=== PATIENT | female | born 1965 | race Caucasian/White ===

== ENCOUNTER 2019-10-23 09:10 | Day surgery (SDC) | payer OTHER ==
[~2019-10-23] VITALS: Ht 167.6 cm; Wt 102.8 kg
[~2019-10-23 09:10] MED LIST: PROZAC20 MG PO; VALA500 PO
== END 2019-10-23 10:28 | disposition home or self-care (01) ==
LOC: ORSCSDS 09:10
PROVIDERS: Internal Medicine Gastroenterology
PROC: 0DBL8ZX Excision of Transverse Colon, Via Natural or Artificial Opening Endoscopic, Diagnostic (ICD-10-PCS; principal; 2019-10-23 08:30)
DX: K62.5 Hemorrhage of anus and rectum (principal); D12.3 Benign neoplasm of transverse colon; I10 Essential (primary) hypertension; K57.30 Diverticulosis of large intestine without perforation or abscess without bleeding; K64.8 Other hemorrhoids; E66.01 Morbid (severe) obesity due to excess calories; Z68.37 Body mass index [BMI] 37.0-37.9, adult; Z79.899 Other long term (current) drug therapy
CPT/HCPCS: J0330; J0461; J2405; J2704; J7120

== ENCOUNTER → 2020-09-05 | Outpatient (CLI) | payer OTHER ==
[2020-09-11 05:11] LABS: HPV 16 Negative (Negative); HPV 18 Negative (Negative); HPV OTHER HR TYPES Negative (Negative)
[2020-09-12 11:20] LABS: CHLAMYDIA BY NAA Negative (Negative); GONOCOCCUS BY NAA Negative (Negative); TRICH VAG BY NAA Negative (Negative)
== END | disposition home or self-care (01) ==
LOC: LAB 09:49 → LAB SHORT 09:49
PROVIDERS: Family Medicine
DX: Z01.419 Encounter for gynecological examination (general) (routine) without abnormal findings (principal)
CPT/HCPCS: 87491; 87591; 87624; 87661; G0123

== ENCOUNTER → 2021-07-25 | Outpatient (CLI) | payer OTHER ==
[~2021-07-25] MED LIST changes: +MECL25 PO
== END ==
LOC: LAB SHORT 18:07
DX: R82.79 Other abnormal findings on microbiological examination of urine (principal)
CPT/HCPCS: 87086

== ENCOUNTER → 2022-07-29 | Outpatient (CLI) | payer OTHER | END | disposition home or self-care (01) | LOC: LAB SHORT 18:37 | DX: L72.3 Sebaceous cyst (principal) | CPT/HCPCS: 87070; 87075; 87205 ==

== ENCOUNTER 2024-05-25 12:12 | Day surgery (SDC) | payer OTHER ==
[~2024-05-25] VITALS: Ht 167.6 cm; Wt 82.4 kg
[~2024-05-25 12:12] MED LIST changes: +ALLEGRA ALLERG180 MG; +Lactated Ringer's 1,000 ML IV ONE; +METF500; +OMEP20ER; +propofoL 50 ML IV ONE
[2024-05-25] MEDS ORDERED: WEGOVY0.5 MG/0.5 (12:55)
[2024-05-25] MEDS ORDERED: Lactated Ringer's 1,000 ML IV ONE (13:19)
[2024-05-25 14:31] VITALS: BP 116/78
== END 2024-05-25 14:35 | disposition home or self-care (01) ==
LOC: ORSCSDS 12:12
PROVIDERS: Internal Medicine Gastroenterology
PROC: 0DBL8ZX Excision of Transverse Colon, Via Natural or Artificial Opening Endoscopic, Diagnostic (ICD-10-PCS; principal; 2024-05-25 13:45)
PROC: 0DBK8ZX Excision of Ascending Colon, Via Natural or Artificial Opening Endoscopic, Diagnostic (ICD-10-PCS; principal; 2024-05-25 13:45)
DX: Z12.11 Encounter for screening for malignant neoplasm of colon (principal); Z86.0101 Personal history of adenomatous and serrated colon polyps; D12.3 Benign neoplasm of transverse colon; D12.2 Benign neoplasm of ascending colon; K57.30 Diverticulosis of large intestine without perforation or abscess without bleeding; K64.8 Other hemorrhoids; E11.9 Type 2 diabetes mellitus without complications; I10 Essential (primary) hypertension; E78.5 Hyperlipidemia, unspecified; Z79.84 Long term (current) use of oral hypoglycemic drugs; Z79.899 Other long term (current) drug therapy; Z86.73 Personal history of transient ischemic attack (TIA), and cerebral infarction without residual deficits
CPT/HCPCS: 82947; 88305; J2704; J7120

== ENCOUNTER → 2024-09-21 | Outpatient (CLI) | payer OTHER ==
[~2024-09-21] MED LIST changes: -Lactated Ringer's 1,000 ML IV ONE; +WEGOVY0.5 MG/0.5; -propofoL 50 ML IV ONE
[2024-09-28 12:33] LABS: HPV GENOTYPE 16 BY TMA Not Detected; HPV GENOTYPE 18/45 BY TMA Not Detected; HPV HIGH RISK BY TMA Detected; HPV SOURCE Cervical; HPVG SOURCE Cervical
== END | disposition home or self-care (01) ==
LOC: LAB SHORT 10:45 → LAB 10:45
PROVIDERS: Family Medicine
DX: Z01.419 Encounter for gynecological examination (general) (routine) without abnormal findings (principal)
CPT/HCPCS: 87624; 87625; G0123

== ENCOUNTER → 2024-12-11 | Outpatient (CLI) | payer OTHER | LOC: LAB SHORT 08:27 → LAB 08:27 | DX: D06.0 Carcinoma in situ of endocervix (principal); D06.1 Carcinoma in situ of exocervix; R87.810 Cervical high risk human papillomavirus (HPV) DNA test positive | CPT/HCPCS: 88305 ==

== ENCOUNTER 2025-05-28 13:45 | Day surgery (SDC) | payer OTHER ==
[~2025-05-28] VITALS: Ht 167.6 cm; Wt 86.9 kg
[2025-05-28] VITALS (9 sets, daily range): BP systolic 115–157; BP diastolic 64–100
[~2025-05-28 13:45] MED LIST changes: +MOUNJARO7.5 MG/0.5 SC
[2025-05-28] MEDS ORDERED: Bupivacaine 0.5% HCl 5 MG/ML 30MLVIAL ONE (16:05)
--- NOTE | 2025-05-28 16:27 | NUR ---
REPORT GIVEN TO JOSÉ MIGUEL GUALLPA RN.
--- NOTE | 2025-05-28 16:27 | NUR ---
Pre-Op teaching done. Pt verbalizes understanding. Ambulatory in Day Surgery. History, Chart, Medications and Allergies reviewed before start of procedure. Patient States Post-Procedure ride home has been arranged. Patient confirms NPO status and agrees with scheduled surgery.
[2025-05-28] MEDS ORDERED: HYDROmorphone HCl/Pf 1MG SYR IV PRN (16:45)
[2025-05-28] MEDS ORDERED: FentaNYL Citrate 50 MCG/ML 2 ML Injection IV PRN ×2 (16:45)
[2025-05-28] MEDS ORDERED: Albuterol 2.5 MG/3 ML VIAL INH PRN (16:45)
[2025-05-28] MEDS ORDERED: Ondansetron HCl 2 MG / ML 2ML Vial IV PRN (16:50)
[2025-05-28] MEDS ORDERED: Midazolam HCl 1MG / ML 2ML Vial ONE (17:07)
[2025-05-28] MEDS ORDERED: Dexamethasone Sod Phos 10 MG/ML 1ML VIAL ONE (17:08)
[2025-05-28] MEDS ORDERED: FentaNYL Citrate 50 MCG/ML 2 ML Injection ONE (17:08)
[2025-05-28] MEDS ORDERED: Rocuronium Bromide 10 MG/ML 5ML Injection IV ONE ×2 (17:08→17:44)
[2025-05-28] MEDS ORDERED: HYDROmorphone HCl/Pf 1MG SYR ONE (17:43)
[2025-05-28] MEDS ORDERED: Labetalol HCL 5 MG/ML 4ML Injection (Single Dose) ONE (17:55)
[2025-05-28] MEDS ORDERED: Sugammadex Sodium 200 MG/2ML SDV (100 MG/ML) ONE (18:44)
--- NOTE | 2025-05-28 18:50 | NUR ---
05/28/25 1850 Gely Forte WHEN EXAMINING BILATERAL FALLOPIAN TUBES FOR ESSURE COILS, REQUESTED ABDOMINAL X-RAY BE TAKEN INTRAOPERATIVELY TO VERIFY ESSURE COIL REMOVAL. REVIEWED ABDOMNIAL X-RAY AND WAS SATISFIED WITH THE RESULTS, AND PROCEEDED WITH CLOSING THE ABDOMINAL PORT SITES.
[2025-05-28] MEDS ORDERED: Ketorolac Tromethamine 30mg Vial ONE (18:56)
[2025-05-28] MEDS ORDERED: OxyCODONE 5 mg/Acetamin 325 mg TABLET PO PRN (19:15)
--- NOTE | 2025-05-28 19:37 | NUR ---
PATIENT ORIENTED. PATIENT OFFERED WATER AND CRACKERS, TOW. EDUCATED PATIENT ON DISCHARGE INSTRUCTIONS, PATIENT VERBALIZED UNDERSTANDING OF DISCHARGE INSTRUCTIONS. RIDE VERIFIED AND PRESENT. NO PAIN OR NAUSEA REPORTED, PATIENT UNDERSTOOD PAIN MANAGEMENT RESOURCES.
== END 2025-05-28 23:00 | disposition home or self-care (01) ==
LOC: ORSCMMR 13:45 → ORD 15:00 → ORSCMMR 15:30
PROVIDERS: Obstetrics & Gynecology
PROC: 0UT74ZZ Resection of Bilateral Fallopian Tubes, Percutaneous Endoscopic Approach (ICD-10-PCS; principal; 2025-05-28 17:30)
DX: Z30.8 Encounter for other contraceptive management (principal); R10.20 Pelvic and perineal pain unspecified side; T83.32XA Displacement of intrauterine contraceptive device, initial encounter; I10 Essential (primary) hypertension; Z86.73 Personal history of transient ischemic attack (TIA), and cerebral infarction without residual deficits; Z79.899 Other long term (current) drug therapy; Z79.85 Long-term (current) use of injectable non-insulin antidiabetic drugs
CPT/HCPCS: 74018; 88302; J1100; J1171; J1885; J2250; J2704; J3010; J7120